=== PATIENT | female | born 1940 | race Caucasian/White ===

== ENCOUNTER 2017-09-03 11:34 | Emergency (ER) | payer MEDICARE, OTHER ==
[~2017-09-03] VITALS: Ht 154.9 cm; Wt 117.9 kg
[~2017-09-03 11:34] MED LIST: ASPI-605 PO; BISA5TAB10 PO; DIVA500T7 PO; LORA1TAB PO; LOSA25TA13 PO; MECL-118 PO; PALI117D IM; PANT40SU PO; QUET100T PO; QUET50TA PO; SACC250C PO; SIMV20TA6 PO; TEMA15CA PO
--- NOTE | 2017-09-03 11:45 | NUR ---
[facility] PRIVATE EMS FROM [facility], RT KNEE PAIN "I FEEL 1 WEEK AGO." NAD NOTED, VSS, RESP EVEN AND UNLABORED, PT WAS PUT ON MONITOR, WAITING FOR MD MIRELES.
[2017-09-03 12:43] LABS: BASOPHILS % (AUTO) 0.5 % (0.0-2.0); EOSINOPHILS # (AUTO) 0.1 /CMM (0.0-0.7); EOSINOPHILS % (AUTO) 1.5 % (0.0-6.0); HEMATOCRIT 40 % (33-45); HEMOGLOBIN 13.3 g/dL (11.5-14.8); LYMPHOCYTES # (AUTO) 1.1 /CMM (0.8-4.8); LYMPHOCYTES % (AUTO) 18.2 % (20.0-44.0); MEAN CORPUSCULAR HEMOGLOBIN 28 PG (26.0-33.0); MEAN CORPUSCULAR HGB CONC 33 g/dl (31.0-36.0); MEAN CORPUSCULAR VOLUME 84 fL (82-100); MONOCYTES # (AUTO) 0.4 /CMM (0.1-1.30); MONOCYTES % (AUTO) 7.4 % (2.0-12.0); NEUTROPHILS # (AUTO) 4.4 /CMM (1.8-8.9); NEUTROPHILS % (AUTO) 72.4 % (43.0-81.0); PLATELET COUNT (AUTO) 218 /CMM (150-450); RDW COEFFICIENT OF VARIATION 13.4 (11.5-15.0); RED BLOOD CELL COUNT(AUTO) 4.77 MIL/uL (4.0-5.2)
[2017-09-03 12:51] LABS: CALCIUM, SERUM 10.1 mg/dL (8.5-10.1); CARBON DIOXIDE 29 mmol/L (21-32); CHLORIDE 105 mmol/L (98-107); CREATININE 0.9 mg/dL (0.6-1.3); GLUCOSE 103 mg/dL (74-106); POTASSIUM 4.1 mmol/L (3.5-5.1); SODIUM SERUM 140 mmol/L (136-145); UREA NITROGEN, BLOOD 13 mg/dL (7-18)
[2017-09-03 13:04] LABS: ACETAMINOPHEN 0 ug/ml (10-30); ALANINE AMINOTRANSFERASE 31 U/L (12-78); ALBUMIN 3.3 g/dL (3.4-5.0); ALCOHOL, BLOOD < 3 mg/dL (0-0); ALKALINE PHOSPHATASE 110 U/L (46-116); ASPARTATE AMINOTRANSFERASE 16 U/L (15-37); BILIRUBIN,DIRECT 0.1 mg/dL (0.0-0.2); BILIRUBIN,TOTAL 0.4 mg/dL (0.2-1.0); SALICYLATE 0.8 mg/dL (2.8-20.0); TOTAL PROTEIN, SERUM 7.2 g/dL (6.4-8.2)
--- NOTE | 2017-09-03 13:44 | NUR ---
URINE COLLECTED SENT TO LAB
[2017-09-03 13:52] LABS: APPEARANCE,URINE Slightly Cloudy (CLEAR); BILIRUBIN,URINE Negative (NEGATIVE); BLOOD, URINE Large Ery/uL (NEGATIVE); KETONES,URINE Negative (NEGATIVE); LEUKOCYTE ESTERASE ,URINE Small (NEGATIVE); NITRITE, URINE Positive (NEGATIVE); PH,URINE 8.5 (5.0-8.0); PROTEIN,URINE 30 mg/dl (NEGATIVE); UGLUCOSE Negative (NEGATIVE); UROBILINOGEN,URINE 0.2 EU/dL (0.2)
[2017-09-03 13:53] LABS: COLOR,URINE PINK (YELLOW)
[2017-09-03 14:01] LABS: RBC,URINE 81-100 /HPF (0-2); WBC,URINE 21-50 /HPF (0-3)
[2017-09-03 14:02] LABS: BACTERIA,URINE Moderate /HPF (None Seen); SQUAMOUS EPITHELIAL CELL,UR Few /HPF (None Seen)
[2017-09-03] MEDS ORDERED: CEPHALEXIN MONOHYDRATE 500 MG CAPSULE PO ONE ×2 (14:30→14:39)
--- NOTE | 2017-09-03 14:47 | NUR ---
CALLED DR CAMERON OFFICE, WAS PAGED.
[2017-09-03] MEDS ORDERED: IV NS 0.9% 1,000 ML BAG IV ONE (15:00)
[2017-09-03] MEDS ORDERED: OLAN20TA6 PO (15:12)
[2017-09-03] MEDS ORDERED: ALPR0.5T8 PO (15:12)
[2017-09-03] MEDS ORDERED: CHOL50004 PO (15:12)
[2017-09-03] MEDS ORDERED: ATOR40TA PO (15:12)
[2017-09-03] MEDS ORDERED: RISP2TAB5 PO (15:12)
[2017-09-03] MEDS ORDERED: LEVO100T9 PO (15:12)
[2017-09-03] MEDS ORDERED: BENZ0.5T43 PO (15:12)
[2017-09-03] MEDS ORDERED: ZOLP10TA6 PO (15:12)
[2017-09-03] MEDS ORDERED: [UNRECOGNIZED DRUG - CODE] PO (15:12)
[2017-09-03] MEDS ORDERED: METF500T4 PO (15:12)
[2017-09-03] MEDS ORDERED: GLIM4TAB2 PO (15:12)
[2017-09-03] MEDS ORDERED: OLAN10TA6 PO (15:12)
--- NOTE | 2017-09-03 16:01 | NUR ---
WILL CALL FOR PRIVATE AMBULANCE
[2017-09-03 16:08] VITALS: BP 127/65
--- NOTE | 2017-09-03 16:11 | NUR ---
CALLED [facility] TRANSPORT ETA OF [id number] WAS GIVEN. TRIP#[id number]
--- NOTE | 2017-09-03 16:24 | NUR ---
NOTE: AMBULANCE CALLED - UNIT IS ON [address] : ETA 45 MINUTES
--- NOTE | 2017-09-03 18:01 | NUR ---
Patient discharged to home in stable condition. Written and verbal after care instructions given. Patient verbalizes understanding of instruction.IV removed. Catheter intact and site benign. Pressure and 4x4 applied to site. No bleeding noted.
== END 2017-09-03 18:02 ==
LOC: ER 11:37
DX: N39.0 Urinary tract infection, site not specified (principal); E11.9 Type 2 diabetes mellitus without complications; E66.01 Morbid (severe) obesity due to excess calories; E78.5 Hyperlipidemia, unspecified; F29 Unspecified psychosis not due to a substance or known physiological condition; R94.02 Abnormal brain scan; I10 Essential (primary) hypertension; Z79.82 Long term (current) use of aspirin; Z86.73 Personal history of transient ischemic attack (TIA), and cerebral infarction without residual deficits; Z88.2 Allergy status to sulfonamides
CPT/HCPCS: 36415; 70450-TC; 73060-TC; 73560-TC; 80048-TC; 80076-TC; 80305; 81000-TC; 84484-TC; 85025-TC; 87086-TC; 87186-TC; A4606; G0480; J7030; Z7610

== ENCOUNTER 2018-10-24 15:48 | Emergency (ER) | payer MEDICARE, OTHER ==
[~2018-10-24] VITALS: Ht 167.6 cm; Wt 122.9 kg
[~2018-10-24 15:48] MED LIST changes: +ALPR0.5T8 PO; +ATOR40TA PO; +BENZ0.5T43 PO; -BISA5TAB10 PO; +CHOL50004 PO; -DIVA500T7 PO; +GLIM4TAB2 PO; +LEVO100T9 PO; -LOSA25TA13 PO; +LOSA25TA27 PO; -MECL-118 PO; +METF-440 PO; +OLAN10TA6 PO; +OLAN20TA6 PO; -QUET100T PO; -QUET50TA PO; +RISP2TAB5 PO; -SACC250C PO; -SIMV20TA6 PO; -TEMA15CA PO; +ZOLP10TA6 PO; +[UNRECOGNIZED DRUG - CODE] PO
[2018-10-24] MEDS ORDERED: HYDROCODONE/APAP 5/325MG 1 EACH TABLET ONE (16:23)
[2018-10-24] MEDS: HYDROCODONE/APAP 5/325MG 1 EACH TABLET PO ONE (16:28)
[2018-10-24] MEDS ORDERED: PALI6TAB PO (16:32)
[2018-10-24] MEDS ORDERED: ASPI-1152 PO (16:32)
[2018-10-24] MEDS ORDERED: LORA0.5T PO (16:32)
[2018-10-24] MEDS ORDERED: TELM40TA2 PO (16:32)
[2018-10-24] MEDS ORDERED: DOCU250C14 PO (16:32)
[2018-10-24] MEDS ORDERED: METF-834 PO (16:32)
[2018-10-24] MEDS ORDERED: PALI3TAB5 PO (16:32)
--- NOTE | 2018-10-24 19:13 | NUR ---
CALLED TRANSPORT SPOKE WITH [facility] ETA IS 7022 TRIP NUMBER IS [id number]
== END 2018-10-24 21:57 | disposition home or self-care (01) ==
LOC: ER 15:53
DX: M25.561 Pain in right knee (principal); I10 Essential (primary) hypertension; E78.5 Hyperlipidemia, unspecified; E66.01 Morbid (severe) obesity due to excess calories; Z68.41 Body mass index [BMI] 40.0-44.9, adult; Z88.2 Allergy status to sulfonamides; Z79.899 Other long term (current) drug therapy; Z79.84 Long term (current) use of oral hypoglycemic drugs; Z79.82 Long term (current) use of aspirin
CPT/HCPCS: 73564-TC